=== PATIENT | female | born 1995 | race Caucasian/White ===

== ENCOUNTER → 2024-07-05 14:53 | Outpatient (REF) | payer BC, SELFPAY | LOC: HWRCS 14:53 | PROVIDERS: ATTENDING PHYSICIAN Internal Medicine Cardiovascular Disease; FAMILY PHYSICIAN Family Medicine | DX: R00.2 Palpitations (principal) | CPT/HCPCS: 93306 ==

== ENCOUNTER 2024-09-20 06:47 | Day surgery (SDC) | payer BC, SELFPAY | END 2024-09-20 10:57 | disposition home or self-care (01) | LOC: GI 06:47 | PROVIDERS: ATTENDING PHYSICIAN Internal Medicine | DX: R11.2 Nausea with vomiting, unspecified (principal); K29.50 Unspecified chronic gastritis without bleeding; K22.89 Other specified disease of esophagus; K21.00 Gastro-esophageal reflux disease with esophagitis, without bleeding; Z80.0 Family history of malignant neoplasm of digestive organs | CPT/HCPCS: 43239; 88305; 88342 ==